=== PATIENT | female | born 1940 | race Caucasian/White ===

== ENCOUNTER → 2022-11-23 13:32 | Outpatient (BNVA) | payer BC, SELFPAY | PROVIDERS: PCP Internal Medicine; Visit Provider Nurse Practitioner Family | DX: Z13.89 Encounter for screening for other disorder (principal) ==

== ENCOUNTER → 2023-01-28 09:55 | Outpatient (BNVA) | payer BC, SELFPAY | PROVIDERS: PCP Internal Medicine; Visit Provider Psychiatry & Neurology Neurology | DX: Z13.89 Encounter for screening for other disorder (principal) ==

== ENCOUNTER 2023-06-22 13:56 | Outpatient (AMB) | payer BC, SELFPAY ==
--- NOTE | 2023-06-22 13:58 | MHC.OFFVIS ---
Intake Vital Signs 06/22/23 14:02 BP 124/66 Blood Pressure Location Lt brachial Position Sitting Pulse 98 Pulse Source Pulse Oximeter Pulse Oximetry (%) 99 Oxygen Delivery Method Room Air Intake Visit Reasons: 6m follow up Parkinsons-confirmed Intake Note: Pt presents today for Parkinsons fup she is feeling okay , pt has had a fall 01/28/2023 Allergies shellfish derived Allergy (Severe, Verified 06/22/23 14:06) Anaphylaxis sulfamethoxazole [From Bactrim] Allergy (Severe, Verified 06/22/23 14:06) Unknown trimethoprim [From Bactrim] Allergy (Severe, Verified 06/22/23 14:06) Unknown HPI HPI Comments History of Present Illness Details 83- yr-old female presents for follow up of parkinsons disease. She is currently in a Long-Term. AFter her last visit in January 2023 she had a fall , fracture. she had surgery , went to rehab and is in long term.she still walks with a walker.she also had pulmonary embolism in May 2023 - is on eliquis 5mg bid she has nausea and difficulty swallowing and has lost about 30lbs carbidopa /levodopa 25/100 2tabs and entacapone 200mg to qid has significantly decreased her dyskinesia. No freezing or OFF periodis but if she misses 1 dose or is late she has significant bradykinesia. No falls, she uses a walker she has help with dressing and bathing.No hallucinations She is accompanied by her brother, Emmanuel. In 2018, she underwent back surgery. As she came out of the surgery, she had a complication of psychosis. She was transferred to [place] for in-patient psychiatric hospitalization, where they noticed RUE tremor. She was referred to Dr Dougherty who diagnosed her with Parkinson's. She does not recall if she had tremor prior to the back surgery. Prior to the back surgery she lived independently at home. Now lives in [facility] 07/06 [facility]- at [facility]. Her brotehr assists w/ finances etc. Pt is right hand dominant. ADL status: Needs assist. IADL status: Needs assist w/ paying bills- pt states she needs help d/t ebing slow. Fine-motor skills: Her writing is worse- sloppy and ? smaller. Relies on staff for cutting her food. 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 Dysphagia: Can have difficulties w/ fluids or solid foods- food becomes stuck at times. f/b [facility]- has had endoscopy. ? esophageal stricture/pocket- is scheduled to see [facility] GI. 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 No h/o PNA. Drooling: No issues. More prone to dry mouth. Orthostatic lightheadedness: Yes. Transient. Constipation: Does have constipation- uses colace, senna, miralax scheduled- works eventually . Slowness: Overall slower Freezing episodes: No issues Tremor: None at this time Dyskinesias: Upper body- near constant. Stiffness: Denies Gait changes: Unsteady Sleep difficulty: Some difficulty falling asleep- the dyskinesia makes it difficult to settle down. Denies REM sleep behaviors. Memory impairment: fairly good Hallucinations: None [facility] Medical History (Updated 06/22/23 @ 14:26 by Tia Ching MD) Arthritis Asthma Depression Fracture of right femur Loss of weight Pulmonary embolism Surgical History History of bilateral tubal ligation History of lumbar laminectomy for spinal cord decompression History of right knee joint replacement Family History Mother Dementia Colitis COPD (chronic obstructive pulmonary disease) Father Renal failure Hypertension Paternal Grandfather Cardiovascular disease Maternal Grandmother Gastric sarcoma Social History Alcohol intake: never Patient Tobacco Use Status: Never used Tobacco Physical Exam Vital Signs: Last Vital Signs Pulse 98 06/22/23 14:02 BP 124/66 06/22/23 14:02 Pulse Ox 99 06/22/23 14:02 Oxygen Delivery Method Room Air 06/22/23 14:02 Const General: cooperative and no acute distress Orientation/consciousness: oriented to person, oriented to place and oriented to time Neuro Other: Expression: Mild decreased expression and blink Voice: normal Tremor: No rest or postural tremor Tone: No sig tone Dyskinesia: none FFM: Slightly decreased ASHLEY: BUE- ok Finger-Nose- Intact w/ very mild kinetic tremor nichole. Foot taps: Decreased, more so on right Psych: Pleasant affect General: oriented to person, oriented to place and oriented to time Psych Mental Status: mental status grossly normal Speech and movement: Normal speech and movement present Affect: normal affect Attitude: cooperative Thought process: Normal thought process present Assessment & Plan Assessment & Plan (1) Parkinson's disease: Code(s): G20 - Parkinson's disease (2) Dyskinesia: Code(s): G24.9 - Dystonia, unspecified (3) Dysphagia: Code(s): R13.10 - Dysphagia, unspecified Plan Carbidopa-Levodopa 25-100mg 1 tab w/ Entacapone 200mg 4 x's per day at at 7:30am, 11:30am, 3:30pm, 7:30pm For dysphagia: f/u w/ GI Coding Level of Care Code Est Pt Level 4 (07739) Diagnoses Parkinson's disease G20 Dyskinesia G24.9 Dysphagia R13.10
[2023-06-22 14:02] VITALS: BP 124/66; PULSE 98; O2SAT 99
== END 2023-06-22 14:38 | disposition home or self-care (01) ==
PROVIDERS: Visit Provider Psychiatry & Neurology Neurology
DX: G20 Parkinson's disease (principal); G24.9 Dystonia, unspecified; R13.10 Dysphagia, unspecified
CPT/HCPCS: 99214

== ENCOUNTER → 2023-06-22 13:56 | Outpatient (BNVA) | payer BC, SELFPAY | PROVIDERS: Visit Provider Psychiatry & Neurology Neurology | DX: G20 Parkinson's disease (principal); G24.9 Dystonia, unspecified; R13.10 Dysphagia, unspecified ==

== ENCOUNTER 2023-10-26 15:46 | Outpatient (AMB) | payer BC, SELFPAY ==
--- NOTE | 2023-10-26 15:47 | A.OFFVIS_ITS ---
Intake Vital Signs 10/26/23 15:48 Height 4 ft 10 in Weight 143 lb BMI 29.9 BP 126/68 Blood Pressure Location Rt brachial Position Sitting Respiration 16 Pulse 61 Pulse Source Pulse Oximeter Pulse Oximetry (%) 98 Oxygen Delivery Method Room Air Intake Visit Reasons: 4m f/u Parkinsons - unable to confirm Intake Note: Pt presents to the office for a 4 month follow up for Parkinson's. 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 She is currently in a Assisted Living. No falls since last visit. She feels her parkinsons has worsened. she has nausea and difficulty swallowing are better. carbidopa /levodopa 25/100 2tabs and entacapone 200mg to qid has significantly decreased her dyskinesia. No freezing or OFF periodis but if she misses 1 dose or is late she has significant bradykinesia. No falls, she uses a walker she has help with dressing and bathing.No hallucinations She is accompanied by her brother, Emmanuel. In 2019, she underwent back surgery. As she came out of the surgery, she had a complication of psychosis. She was transferred to [place] for in-patient psychiatric hospitalization, where they noticed RUE tremor. She was referred to Dr Dougherty who diagnosed her with Parkinson's. She does not recall if she had tremor prior to the back surgery. Prior to the back surgery she lived independently at home. Now lives in [facility] 07/06 [facility]- at [facility]. Her brotehr assists w/ finances etc. Pt is right hand dominant. ADL status: Needs assist. IADL status: Needs assist w/ paying bills- pt states she needs help d/t ebing slow. Fine-motor skills: Her writing is worse- sloppy and ? smaller. Relies on staff for cutting her food. 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 Dysphagia: Can have difficulties w/ fluids or solid foods- food becomes stuck at times. f/b [facility]- has had endoscopy. ? esophageal stricture/pocket- is scheduled to see [facility] GI. 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 No h/o PNA. Drooling: No issues. More prone to dry mouth. Orthostatic lightheadedness: Yes. Transient. Constipation: Does have constipation- uses colace, senna, miralax scheduled- works eventually . Slowness: Overall slower Freezing episodes: No issues Tremor: None at this time Dyskinesias: Upper body- near constant. Stiffness: Denies Gait changes: Unsteady Sleep difficulty: Some difficulty falling asleep- the dyskinesia makes it difficult to settle down. Denies REM sleep behaviors. Memory impairment: fairly good Hallucinations: None [facility] Medical History Loss of weight Fracture of right femur Pulmonary embolism Asthma Depression Arthritis Surgical History History of right knee joint replacement History of lumbar laminectomy for spinal cord decompression History of bilateral tubal ligation Family History Mother Dementia Colitis COPD (chronic obstructive pulmonary disease) Father Renal failure Hypertension Paternal Grandfather Cardiovascular disease Maternal Grandmother Gastric sarcoma Social History Alcohol intake: never Patient Tobacco Use Status: Never used Tobacco Physical Exam Vital Signs: Last Vital Signs Pulse 61 10/26/23 15:48 Resp 16 10/26/23 15:48 BP 126/68 10/26/23 15:48 Pulse Ox 98 10/26/23 15:48 Oxygen Delivery Method Room Air 10/26/23 15:48 BMI result Body Mass Index 29.9 Const General: cooperative and no acute distress Orientation/consciousness: oriented to person, oriented to place and oriented to time Neuro Other: Expression: Mild decreased expression and blink Voice: normal Tremor: No rest or postural tremor Tone: No sig tone Dyskinesia: none FFM: Slightly decreased No cog wheel rigidity Finger-Nose- Intact w/ very mild kinetic tremor nichole. Foot taps: Decreased, more so on right Psych: Pleasant affect General: oriented to person, oriented to place and oriented to time Psych Mental Status: mental status grossly normal Speech and movement: Normal speech and movement present Affect: normal affect Attitude: cooperative Thought process: Normal thought process present Assessment & Plan Assessment & Plan (1) Parkinson's disease: Code(s): G20 - Parkinson's disease (2) Dyskinesia: Code(s): G24.9 - Dystonia, unspecified (3) Dysphagia: Code(s): R13.10 - Dysphagia, unspecified Plan Carbidopa-Levodopa 25-100mg 1 tab w/ Entacapone 200mg 4 x's per day at at 7:30am, 11:30am, 3:30pm, 7:30pm For dysphagia: f/u w/ GI Coding Level of Care Code Est Pt Level 4 (14967) Diagnoses Parkinson's disease G20 Dyskinesia G24.9 Dysphagia R13.10
[2023-10-26 15:48] VITALS: BP 126/68; PULSE 61; RESP 16; O2SAT 98; BMI 29.9
== END 2023-10-26 16:10 | disposition home or self-care (01) ==
PROVIDERS: PCP Internal Medicine; Visit Provider Psychiatry & Neurology Neurology
DX: G20.B1 Parkinson's disease with dyskinesia, without mention of fluctuations (principal); R13.10 Dysphagia, unspecified
CPT/HCPCS: 99214

== ENCOUNTER → 2023-10-26 15:46 | Outpatient (BNVA) | payer BC, SELFPAY | PROVIDERS: PCP Internal Medicine; Visit Provider Psychiatry & Neurology Neurology | DX: G24.9 Dystonia, unspecified (principal); R13.10 Dysphagia, unspecified ==

== ENCOUNTER 2024-02-22 14:06 | Outpatient (AMB) | payer BC, SELFPAY ==
[2024-02-22 14:13] VITALS: BP 110/60; PULSE 58; RESP 16; O2SAT 100; BMI 30.3
--- NOTE | 2024-02-22 14:13 | A.OFFVIS_ITS ---
Intake Vital Signs 02/22/24 14:13 Height 4 ft 10 in Weight 145 lb BMI 30.3 BP 110/60 Blood Pressure Location Rt brachial Position Sitting Respiration 16 Pulse 58 Pulse Source Pulse Oximeter Pulse Oximetry (%) 100 Oxygen Delivery Method Room Air Intake Visit Reasons: 4 mo f/u -Parkinson-LVM Intake Note: Pt presents to the office for a 4 month follow up for Parkinson's. 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 Allergies shellfish derived Allergy (Severe, Verified 02/22/24 14:13) Anaphylaxis sulfamethoxazole [From Bactrim] Allergy (Severe, Verified 02/22/24 14:13) Unknown trimethoprim [From Bactrim] Allergy (Severe, Verified 02/22/24 14:13) Unknown Medication List - Last Reconciled 02/22/24 by Tia Ching MD acetaminophen mg PO alpha lipoic acid 300 mg PO DAILY apixaban (Eliquis) 5 mg PO BID atorvastatin 10 mg PO DAILY buspirone 10 mg PO BID carbidopa-levodopa 25-100 mg 2 tabs PO QID docusate sodium 100 mg PO BID duloxetine 60 mg PO DAILY entacapone 200 mg PO QID fluticasone propionate 50 mcg/actuation sprays intranasal gabapentin 100 mg PO DAILY lactulose mL PO levothyroxine 112 mcg PO DAILY magnesium hydroxide (Milk of Magnesia) 5 mL PO DAILY PRN magnesium oxide 400 mg PO BEDTIME melatonin 3 mg PO BEDTIME PRN ondansetron HCl 4 mg PO Q8H PRN pantoprazole 20 mg PO DAILY sennosides-docusate sodium 8.6-50 mg (Senna Plus) 1 tab-cap PO BEDTIME spironolactone 25 mg PO DAILY thiamine HCl (vitamin B1) (Vitamin B-1) 100 mg PO DAILY trazodone 50 mg PO BEDTIME HPI HPI Comments History of Present Illness Details 83- yr-old female presents for follow up of parkinsons disease. She is currently in a Assisted Living. No falls since last visit. She feels her parkinsons is stable carbidopa /levodopa 25/100 2tabs and entacapone 200mg to qid has significantly decreased her dyskinesia. No freezing or OFF periodis but if she misses 1 dose or is late she has significant bradykinesia. she has help with dressing and bathing.No hallucinations She is accompanied by her brother, Emmanuel. In 2019, she underwent back surgery. As she came out of the surgery, she had a complication of psychosis. She was transferred to [place] for in-patient psychiatric hospitalization, where they noticed RUE tremor. She was referred to Dr Dougherty who diagnosed her with Parkinson's. She does not recall if she had tremor prior to the back surgery. Prior to the back surgery she lived independently at home. Now lives in [facility] 07/06 [facility]- at [facility]. Her brotehr assists w/ finances etc. Pt is right hand dominant. ADL status: Needs assist. IADL status: Needs assist w/ paying bills- pt states she needs help d/t ebing slow. Fine-motor skills: Her writing is worse- sloppy and ? smaller. Relies on staff for cutting her food. 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 Dysphagia: Can have difficulties w/ fluids or solid foods- food becomes stuck at times. f/b [facility]- has had endoscopy. ? esophageal stricture/pocket- is scheduled to see [facility] GI. 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 No h/o PNA. Drooling: No issues. More prone to dry mouth. Orthostatic lightheadedness: Yes. Transient. Constipation: Does have constipation- uses colace, senna, miralax scheduled- works eventually . Slowness: Overall slower Freezing episodes: No issues Tremor: None at this time Dyskinesias: Upper body- near constant. Stiffness: Denies Gait changes: Unsteady Sleep difficulty: Denies REM sleep behaviors. Memory impairment: fairly good Hallucinations: None [facility] Medical History (Updated 02/22/24 @ 14:39 by Tia Ching MD) Parkinson's disease with dyskinesia Loss of weight Fracture of right femur Pulmonary embolism Asthma Depression Arthritis Surgical History History of right knee joint replacement History of lumbar laminectomy for spinal cord decompression History of bilateral tubal ligation Family History Mother Dementia Colitis COPD (chronic obstructive pulmonary disease) Father Renal failure Hypertension Paternal Grandfather Cardiovascular disease Maternal Grandmother Gastric sarcoma Social History Alcohol intake: never Patient Tobacco Use Status: Never used Tobacco Physical Exam Vital Signs: Last Vital Signs Pulse 58 02/22/24 14:13 Resp 16 02/22/24 14:13 BP 110/60 02/22/24 14:13 Pulse Ox 100 02/22/24 14:13 Oxygen Delivery Method Room Air 02/22/24 14:13 BMI result Body Mass Index 30.3 Const General: cooperative and no acute distress Orientation/consciousness: oriented to person, oriented to place and oriented to time Neuro Other: Expression: Mild decreased expression and blink Voice: normal Tremor: No rest or postural tremor Tone: No sig tone Dyskinesia: none FFM: Slightly decreased No cog wheel rigidity Finger-Nose- Intact w/ very mild kinetic tremor nichole. Foot taps: Decreased, more so on right Psych: Pleasant affect General: oriented to person, oriented to place and oriented to time Psych Mental Status: mental status grossly normal Speech and movement: Normal speech and movement present Affect: normal affect Attitude: cooperative Thought process: Normal thought process present Assessment & Plan Assessment & Plan (1) Parkinson's disease with dyskinesia: Code(s): G20.B1 - Parkinson's disease with dyskinesia, without mention of fluctuations (2) Dysphagia: Code(s): R13.10 - Dysphagia, unspecified (3) Parkinson's disease: Code(s): G20 - Parkinson's disease (4) Dyskinesia: Code(s): G24.9 - Dystonia, unspecified Plan Carbidopa-Levodopa 25-100mg 2 tab w/ Entacapone 200mg 4 x's per day at at 7:30am, 11:30am, 3:30pm, 7:30pm For dysphagia: f/u w/ GI Coding Level of Care Code Est Pt Level 4 (65083) Diagnoses Parkinson's disease with dyskinesia G20.B1 Dysphagia R13.10 Parkinson's disease G20 Dyskinesia G24.9
== END 2024-02-22 14:51 | disposition home or self-care (01) ==
PROVIDERS: PCP Internal Medicine; Visit Provider Psychiatry & Neurology Neurology
DX: G20.B1 Parkinson's disease with dyskinesia, without mention of fluctuations (principal); R13.10 Dysphagia, unspecified
CPT/HCPCS: 99214

== ENCOUNTER → 2024-02-22 14:06 | Outpatient (BNVA) | payer BC, SELFPAY | PROVIDERS: PCP Internal Medicine; Visit Provider Psychiatry & Neurology Neurology ==

== ENCOUNTER 2024-09-06 13:47 | Outpatient (AMB) | payer BC, SELFPAY ==
--- NOTE | 2024-09-06 13:49 | MHC.OFFVIS ---
Vital Signs 09/06/24 13:52 Height 4 ft 10 in Weight 155 lb BMI 32.4 BP 122/78 Blood Pressure Location Lt brachial Position Sitting Pulse 68 Pulse Source Pulse Oximeter Pulse Oximetry (%) 95 Oxygen Delivery Method Room Air Intake Visit Reasons: 6 month F/U Intake Note: Patient presents in office for a 6 mo fu for Parkinson's. Patient reports that she is feeling very weak today. 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 She is currently in a Rehab facility. she had a fall 2 months ago. she was trying to sit in a picnic bench and fell .No fractures, no head injury. she also had cholecystectomy n Aug 16 and is in Rehab now. she feels weak the last few days .No hallucinations she reports dizziness. carbidopa /levodopa 25/100 2tabs and entacapone 200mg to qid has significantly decreased her dyskinesia. she has help with dressing and bathing.No hallucinations She is accompanied by her brother, Emmanuel. In 2019, she underwent back surgery. As she came out of the surgery, she had a complication of psychosis. She was transferred to [place] for in-patient psychiatric hospitalization, where they noticed RUE tremor. She was referred to Dr Dougherty who diagnosed her with Parkinson's. She does not recall if she had tremor prior to the back surgery. Prior to the back surgery she lived independently at home. Pt is right hand dominant. ADL status: Needs assist. IADL status: Needs assist w/ paying bills- pt states she needs help d/t ebing slow. Fine-motor skills: Her writing is worse- sloppy and ? smaller. Relies on staff for cutting her food. 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 Dysphagia: Can have difficulties w/ fluids or solid foods- food becomes stuck at times. f/b [facility]- has had endoscopy. ? esophageal stricture/pocket- is scheduled to see [facility] GI. 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 Drooling: No issues. More prone to dry mouth. Orthostatic lightheadedness: Yes. Transient. Constipation: Does have constipation- uses colace, senna, miralax scheduled- works eventually . Slowness: Overall slower Freezing episodes: No issues Tremor: None at this time Dyskinesias: Upper body- near constant. Stiffness: Denies Gait changes: Unsteady Sleep difficulty: Denies REM sleep behaviors. Memory impairment: fairly good Hallucinations: None [facility] Medical History Parkinson's disease with dyskinesia Loss of weight Fracture of right femur Pulmonary embolism Asthma Depression Arthritis Surgical History History of right knee joint replacement History of lumbar laminectomy for spinal cord decompression History of bilateral tubal ligation Family History Mother Dementia Colitis COPD (chronic obstructive pulmonary disease) Father Renal failure Hypertension Paternal Grandfather Cardiovascular disease Maternal Grandmother Gastric sarcoma Social History Alcohol intake: never Patient Tobacco Use Status: Never used Tobacco Physical Exam Vital Signs: Last Vital Signs Pulse 68 09/06/24 13:52 BP 122/78 09/06/24 13:52 Pulse Ox 95 09/06/24 13:52 Oxygen Delivery Method Room Air 09/06/24 13:52 BMI result Body Mass Index 32.4 Const General: cooperative and no acute distress Orientation/consciousness: oriented to person, oriented to place and oriented to time Neuro Other: Expression: Mild decreased expression and blink Voice: normal Tremor: No rest or postural tremor Tone: No sig tone Dyskinesia: none FFM: moderately decreased No cog wheel rigidity Finger-Nose- Intact w/ very mild kinetic tremor nichole. Foot taps:severe Decreased, more so on right Psych: Pleasant affect General: oriented to person, oriented to place and oriented to time Psych Mental Status: mental status grossly normal Speech and movement: Normal speech and movement present Affect: normal affect Attitude: cooperative Thought process: Normal thought process present Assessment & Plan Assessment & Plan (1) Parkinson's disease with dyskinesia: Code(s): G20.B1 - Parkinson's disease with dyskinesia, without mention of fluctuations Category: Medical Qualifiers: Fluctuating manifestations: with fluctuating manifestations Qualified Code(s): G20.B2 - Parkinson's disease with dyskinesia, with fluctuations (2) Dysphagia: Code(s): R13.10 - Dysphagia, unspecified Category: Medical Qualifiers: Dysphagia type: oropharyngeal phase Qualified Code(s): R13.12 - Dysphagia, oropharyngeal phase (3) Parkinson's disease: Code(s): G20 - Parkinson's disease Category: Medical (4) Dyskinesia: Code(s): G24.9 - Dystonia, unspecified Category: Medical Plan Carbidopa-Levodopa 25-100mg 2 tab w/ Entacapone 200mg 4 x's per day at at 7:30am, 11:30am, 3:30pm, 7:30pm Trial patient on Ropiniorle XR 2mg qhs for OFF periods and bradykinesia Increase fluid intake Monitor for halluicnations and hypotension. For dysphagia: f/u w/ GI Medications: New ropinirole ER 2 mg PO BEDTIME 30 tabs 6RF Scribe Plan - Not visible on output: . Coding Level of Care Code Est Pt Level 4 (09230) Complex EM visit Add On G2211 Diagnoses Parkinson's disease with dyskinesia and fluctuating manifestations G20.B2 Fluctuating manifestations: with fluctuating manifestations Oropharyngeal dysphagia R13.12 Dysphagia type: oropharyngeal phase Parkinson's disease G20 Dyskinesia G24.9
[2024-09-06 13:52] VITALS: BP 122/78; PULSE 68; O2SAT 95; BMI 32.4
== END 2024-09-06 14:28 | disposition home or self-care (01) ==
PROVIDERS: PCP Internal Medicine; Visit Provider Psychiatry & Neurology Neurology
DX: G20.B2 Parkinson's disease with dyskinesia, with fluctuations (principal); R13.12 Dysphagia, oropharyngeal phase
CPT/HCPCS: 99214

== ENCOUNTER → 2024-09-06 13:47 | Outpatient (BNVA) | payer BC, SELFPAY | PROVIDERS: PCP Internal Medicine; Visit Provider Psychiatry & Neurology Neurology ==

== ENCOUNTER 2025-06-20 10:45 | Outpatient (AMB) | payer BC, SELFPAY ==
--- NOTE | 2025-06-20 10:56 | A.OFFVIS_ITS ---
Vital Signs 06/20/25 10:57 Height 4 ft 10 in BP 90/60 Blood Pressure Location Lt brachial Position Sitting Pulse 72 Pulse Source Pulse Oximeter Pulse Oximetry (%) 90 L Oxygen Delivery Method Room Air Intake Visit Reasons: Follow Up Intake Note: Patient presents follow up for Parkinson's. Continues to have trouble swallowing Coke Drawer Hand Required: No Allergies shellfish derived Allergy (Severe, Verified 06/20/25 11:04) Anaphylaxis sulfamethoxazole (From Bactrim) Allergy (Severe, Verified 06/20/25 11:04) Unknown trimethoprim (From Bactrim) Allergy (Severe, Verified 06/20/25 11:04) Unknown HPI Comments Details: 84- yr-old female presents for follow up of parkinsons disease. she did not noticed any improvement with ropinirole.-s-he is slower, has more stiffness and has dysphagia. History from last visit- She is currently in a Rehab facility. she had a fall 2 months ago. she was trying to sit in a picnic bench and fell .No fractures, no head injury. she also had cholecystectomy n Aug 16 and is in Rehab now. she feels weak the last few days .No hallucinations she reports dizziness. carbidopa /levodopa 25/100 2tabs and entacapone 200mg to qid has significantly decreased her dyskinesia. she has help with dressing and bathing.No hallucinations She is accompanied by her brother, Emmanuel. In 2019, she underwent back surgery. As she came out of the surgery, she had a complication of psychosis. She was transferred to [place] for in-patient psychiatric hospitalization, where they noticed RUE tremor. She was referred to Dr Dougherty who diagnosed her with Parkinson's. She does not recall if she had tremor prior to the back surgery. Prior to the back surgery she lived independently at home. Pt is right hand dominant. ADL status: Needs assist. IADL status: Needs assist w/ paying bills- pt states she needs help d/t ebing slow. Fine-motor skills: Her writing is worse- sloppy and ? smaller. Relies on staff for cutting her food. 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 Dysphagia: Can have difficulties w/ fluids or solid foods- food becomes stuck at times. f/b [facility] ENT- has had endoscopy. ? esophageal stricture/pocket- is scheduled to see [facility] GI. Has not done [employer]. No h/o PNA. Drooling: No issues. More prone to dry mouth. Orthostatic lightheadedness: Yes. Transient. Constipation: Does have constipation- uses colace, senna, miralax scheduled- works eventually . Slowness: Overall slower Freezing episodes: No issues Tremor: None at this time Dyskinesias: Upper body- near constant. Stiffness: Denies Gait changes: Unsteady Sleep difficulty: Denies REM sleep behaviors. Memory impairment: fairly good Hallucinations: None PFSH Medical History Parkinson's disease with dyskinesia Loss of weight Fracture of right femur Pulmonary embolism Asthma Depression Arthritis Surgical History History of right knee joint replacement History of lumbar laminectomy for spinal cord decompression History of bilateral tubal ligation Family History Mother Dementia Colitis COPD (chronic obstructive pulmonary disease) Father Renal failure Hypertension Paternal Grandfather Cardiovascular disease Maternal Grandmother Gastric sarcoma Social History Alcohol intake: never Patient Tobacco Use Status: Never used Tobacco Physical Exam Vital Signs: Last Vital Signs Pulse 72 06/20/25 10:57 BP 90/60 06/20/25 10:57 Pulse Ox 90 L 06/20/25 10:57 Oxygen Delivery Method Room Air 06/20/25 10:57 Const General: cooperative and no acute distress Orientation/consciousness: oriented to person, oriented to place and oriented to time Neuro Other: Expression: Mild decreased expression and blink Voice: normal Tremor: No rest or postural tremor Tone: No sig tone Dyskinesia: none FFM: moderately decreased No cog wheel rigidity Finger-Nose- Intact w/ very mild kinetic tremor nichole. Foot taps:severe Decreased, more so on right Psych: Pleasant affect General: oriented to person, oriented to place and oriented to time Psych Mental Status: mental status grossly normal Speech and movement: Normal speech and movement present Affect: normal affect Attitude: cooperative Thought process: Normal thought process present Assessment & Plan Assessment & Plan (1) Parkinson's disease with dyskinesia: Code(s): G20.B1 - Parkinson's disease with dyskinesia, without mention of fluctuations Category: Medical Qualifiers: Fluctuating manifestations: with fluctuating manifestations Qualified Code(s): G20.B2 - Parkinson's disease with dyskinesia, with fluctuations (2) Dysphagia: Code(s): R13.10 - Dysphagia, unspecified Category: Medical Qualifiers: Dysphagia type: oropharyngeal phase Qualified Code(s): R13.12 - Dysphagia, oropharyngeal phase (3) Dyskinesia: Code(s): G24.9 - Dystonia, unspecified Category: Medical Plan Increase Carbidopa-Levodopa 25-100mg 2.5 tab w/ Entacapone 200mg 4 x's per day at at 7:30am, 11:30am, 3:30pm, 7:30pm patient on Ropiniorle XR 2mg qhs for OFF periods and bradykinesia Increase fluid intake Monitor for halluicnations and hypotension. For dysphagia: f/u w/ GI Scribe Plan - Not visible on output: . Coding Level of Care Code Est Pt Level 4 (30722) Complex EM visit Add On G2211 Diagnoses Parkinson's disease with dyskinesia and fluctuating manifestations G20.B2 Fluctuating manifestations: with fluctuating manifestations Oropharyngeal dysphagia R13.12 Dysphagia type: oropharyngeal phase Dyskinesia G24.9
[2025-06-20 10:57] VITALS: BP 90/60; PULSE 72; O2SAT 90
--- OUTSIDE RECORDS SUMMARY | 2025-06-20 11:29 | XMS_ITS | Encounter Summary ---
Author Organization [facility] Address [address] [place] [address] Care Team Providers Care Forensic Nurse Name Role Phone Macario Rebollar MD Primary Care Provider [phone] Encounter Details Date Type Department Care Team (Late st Contact Info) Description 12/24/2024 Lab Requisition [facility] - Main Lab [address] [facility] [place] [address] Zac Fletcher MD [address] [place] [address] Parkinson's disease without dyskinesia, without mention of fluctuations (CMS/HCC V24, CMS/HCC V28) Social History Tobacco Use Types Packs/Day Years Used Date Smoking Tobacco: Never Smokeless Tobacco: Never Alcohol Use Standard Drinks/Week Comments Yes 0 (1 standard drink = 0.6 oz pur e alcohol) Comments Unknown Sex and Gender Information Value Date Recorded Sex Assigned at Not on file Legal Sex Female 10:34 PM EST Gender Identity Not on file Sexual Orientation Not on file documented as of this encounter Plan of Treatment Not on file documented as of this encounter Procedures Procedure Name Priority Date/Time Associated Diagnosis Comments COMPLETE BLOOD COUNT Routine 12/25/2024 7:40 AM EST Parkinson's disease without dyskinesia, without mention of fluctuations (CMS/HCC) BASIC METABOLIC PANEL Routine 12/25/2024 7:40 AM EST Parkinson's disease without dyskinesia, without mention of fluctuations (CMS/HCC) documented in this encounter Results * Basic metabolic panel (12/25/2024 7:40 AM EST) Sodium 134 133 - 145 mmol/L LAB CHEMISTRY METHOD 12/25/2024 1:11 PM [facility] Potassium 4.2 3.5 - 5.5 mmol/L LAB CHEMISTRY METHOD 12/25/2024 1:11 PM [facility] Chloride 103 96 - 110 mmol/L LAB CHEMISTRY METHOD 12/25/2024 1:11 PM [facility] CO2 23 21 - 32 mmol/L LAB CHEMISTRY METHOD 12/25/2024 1:11 PM [facility] Anion Gap 8 3 - 11 LAB CHEMISTRY METHOD 12/25/2024 1:11 PM [facility] Glucose 87 70 - 100 mg/dL LAB CHEMISTRY METHOD 12/25/2024 1:11 PM [facility] BUN 20 5 - 25 mg/dL LAB CHEMISTRY METHOD 12/25/2024 1:11 PM [facility] Creatinine 0.83 0.50 - 1.10 mg/dL LAB CHEMISTRY METHOD 12/25/2024 1:11 PM [facility] eGFR 70 >=60 mL/min/1. 73m2 LAB CHEMISTRY METHOD 12/25/2024 1:11 PM [facility] Comment:Calculation based on the Chronic Kidney Disease Epidemiology Collaboration (CKD-EPI) equation refit without adjustment for race. BUN/Creatinine Ratio 24.1 LAB CHEMISTRY METHOD 12/25/2024 1:11 PM [facility] Calcium 8.6 8.5 - 10.5 mg/dL LAB CHEMISTRY METHOD 12/25/2024 1:11 PM [facility] Blood Venous blood specimen / Unknown Venipuncture / Unknown 12/25/2024 7:40 AM EST 12/25/2024 11:24 AM EST us Zac Fletcher MD LAB BLOOD ORDERABLES Final Result [facility] [address] [place] [address], * (ABNORMAL) Complete blood count (12/25/2024 7:40 AM EST) [facility] Signature WBC 3.2(L) 4.8 - 10.8 K/mcL LAB HEMETOLOGY METHOD 12/25/2024 12:43 PM [facility] RBC 3.70(L) 3.80 - 4.80 M/mcL LAB HEMETOLOGY METHOD 12/25/2024 12:43 PM [facility] Hemoglobin 11.4(L) 11.5 - 16.0 g/dL LAB HEMETOLOGY METHOD 12/25/2024 12:43 PM [facility] Hematocrit 35.4 35.0 - 47.0 % LAB HEMETOLOGY METHOD 12/25/2024 12:43 PM [facility] MCV 95.9 79.0 - 98.0 FL LAB HEMETOLOGY METHOD 12/25/2024 12:43 PM [facility] MCH 30.9 27.0 - 32.0 pcg LAB HEMETOLOGY METHOD 12/25/2024 12:43 PM [facility] MCHC 32.2 32.0 - 37.0 g/dL LAB HEMETOLOGY METHOD 12/25/2024 12:43 PM [facility] RDW 13.2 11.0 - 15.0 % LAB HEMETOLOGY METHOD 12/25/2024 12:43 PM [facility] Platelets 216 130 - 400 K/mcL LAB HEMETOLOGY METHOD 12/25/2024 12:43 PM [facility] MPV 10.7 7.0 - 11.0 FL LAB HEMETOLOGY METHOD 12/25/2024 12:43 PM [facility] NRBC 0.0 <1.0 % LAB HEMETOLOGY METHOD 12/25/2024 12:[address] [facility] NRBC Absolute 0.00 <0.10 K/mcL LAB HEMETOLOGY METHOD 12/25/2024 12:[address] [facility] Blood Venous blood specimen / Unknown Venipuncture / Unknown 12/25/2024 7:40 AM EST 12/25/2024 11:24 AM EST us Zac Fletcher MD LAB BLOOD ORDERABLES Final Result 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
== END 2025-06-20 11:56 | disposition home or self-care (01) ==
LOC: HO.HSMS 10:46
PROVIDERS: PCP Internal Medicine; Visit Provider Psychiatry & Neurology Neurology
DX: G20.B2 Parkinson's disease with dyskinesia, with fluctuations (principal); R13.12 Dysphagia, oropharyngeal phase; G24.9 Dystonia, unspecified
CPT/HCPCS: 99214